=== PATIENT | female | born 1990 | race Caucasian/White ===

== ENCOUNTER 2016-09-25 12:32 | Emergency (ER) | payer MEDICAID ==
[2016-09-25] MEDS ORDERED: HYDROCODONE/ACETAMINOPHEN 5-325 MG TABLET PO ONE (13:16)
--- NOTE | 2016-09-25 13:16 | ER Document Report ---
ED Medical Screen (RME) - General Stated Complaint: CHEST PAIN Time seen by provider: 13:14 Mode of Arrival: Ambulatory Information source: Patient TRAVEL OUTSIDE OF THE [place] IN LAST 30 DAYS: No - HPI Patient complains to provider of: PAIN UNDER RIGHT RIBS Onset: Other - 4 DAYS Onset/Duration: Constant Context: HURTS WITH DEEP BREATH, COUGH, LAYING DOWN Quality of pain: Sharp, Stabbing Severity: Severe Pain Level: 5 Associated Symptoms: Abdominal pain. denies: Nausea, Vomiting Exacerbated by: Coughing, Deep breathing, Food Relieved by: Denies Similar symptoms previously: No Recently seen / treated by doctor: No - Related Data Smoking: Cigarettes Frequency of alcohol use: None Drug Abuse: None Allergies/Adverse Reactions: No Known Allergies Allergy (Verified 09/25/14 23:33) Past Medical History - Immunizations Immunizations up to date: Yes Hx Diphtheria, Pertussis, Tetanus Vaccination: Yes
[2016-09-25 13:41] LABS: ABSOLUTE LYMPHOCYTES (AUTO) 2.4 10^3/uL (0.5-4.7); ABSOLUTE MONOCYTES (AUTO) 0.6 10^3/uL (0.1-1.4); ABSOLUTE NEUT (AUTO) 6.4 10^3/uL (1.7-8.2); BASOPHILS % (AUTO) 0.5 % (0-2); EOSINOPHILS % (AUTO) 0.5 % (0-6); HEMATOCRIT 37.7 % (36.0-47.0); HEMOGLOBIN 12.7 g/dL (12.0-15.5); HGB HCT DIFFERENCE 0.4; MEAN CORPUSCULAR HEMOGLOBIN 27.1 pg (27.0-33.4); MEAN CORPUSCULAR HGB CONC 33.5 g/dL (32.0-36.0); MEAN CORPUSCULAR VOLUME 81 fl (80-97); MONOCYTES % (AUTO) 6.5 % (3-13); RED BLOOD COUNT 4.67 10^6/uL (3.72-5.28); RED CELL DISTRIBUTION WIDTH 14.3 % (11.5-14.0); SEGMENTED NEUTROPHILS % (AUTO) 67.5 % (42-78); WHITE BLOOD COUNT 9.5 10^3/uL (4.0-10.5)
[2016-09-25 13:46] LABS: APPEARANCE,URINE SLIGHTLY-CLOUDY; BILIRUBIN,URINE NEGATIVE (NEGATIVE); GLUCOSE, URINE NEGATIVE (NEGATIVE); KETONES,URINE NEGATIVE (NEGATIVE); LEUKOCYTE ESTERASE,URINE LARGE (NEGATIVE); NITRITE,URINE NEGATIVE (NEGATIVE); PROTEIN,URINE NEGATIVE (NEGATIVE); URINE SPECIFIC GRAVITY 1.012; UROBILINOGEN,URINE NEGATIVE mg/dL (<2.0)
[2016-09-25 14:00] LABS: ALANINE AMINOTRANSFERASE 25 U/L (9-52); ALBUMIN 4.1 g/dL (3.5-5.0); ALKALINE PHOSPHATASE 78 U/L (38-126); ANION GAP 13 (5-19); ASPARTATE AMINO TRANSFERASE 17 U/L (14-36); BILIRUBIN,TOTAL 0.3 mg/dL (0.2-1.3); BLOOD UREA NITROGEN 9 mg/dL (7-20); CALCIUM 9.4 mg/dL (8.4-10.2); CARBON DIOXIDE 25 mmol/L (22-30); CHLORIDE 104 mmol/L (98-107); CREATININE RESULT 0.61 mg/dL (0.52-1.25); GLUCOSE 77 mg/dL (75-110); LIPASE 123.1 U/L (23-300); POTASSIUM 4.4 mmol/L (3.6-5.0); SODIUM 141.6 mmol/L (137-145); TOTAL PROTEIN 7.1 g/dL (6.3-8.2)
--- NOTE | 2016-09-25 15:07 | ER Document Report ---
ED GI/ - General Mode of Arrival: Ambulatory Information source: Patient TRAVEL OUTSIDE OF THE [place] IN LAST 30 DAYS: No - HPI Patient complains to provider of: Abdominal pain - RUQ Onset: Other - x4 days Timing/Duration: Persistent Quality of pain: Sharp Associated symptoms: None Exacerbated by: Deep breathing <ERICA TEJEDA - Last Filed: 09/25/16 15:23> <ADRIANA GUAMAN - Last Filed: 09/25/16 18:07> - General Chief Complaint: Upper Abdominal Pain Stated Complaint: CHEST PAIN Notes: Patient is a 26-year-old female that presents to the emergency department today with complaints of right upper quadrant abdominal pain. Patient states the pain began 4 days ago during her sleep and has remained constant since onset. Patient states the pain radiates to her back and right shoulder. Patient states the pain feels like it is "under the rib cage". Patient states her pain is exacerbated with deep breathing. Patient denies any nausea, vomiting, or diarrhea. (ERICA TEJEDA) - Related Data Allergies/Adverse Reactions: No Known Allergies Allergy (Verified 09/25/16 13:17) Past Medical History - General Information source: Patient - Social History Smoking Status: Current Every Day Smoker Cigarette use (# per day): Yes Chew tobacco use (# tins/day): No Frequency of alcohol use: None Drug Abuse: None Lives with: Family Family History: Reviewed & Not Pertinent Patient has suicidal ideation: No Patient has homicidal ideation: No - Medical History Medical History: Negative Past Surgical History: Reports: Other - cyst on tailbone removed - Immunizations Immunizations up to date: Yes Hx Diphtheria, Pertussis, Tetanus Vaccination: Yes <ERICA TEJEDA - Last Filed: 09/25/16 15:23> Review of Systems - Review of Systems Constitutional: No symptoms reported EENT: No symptoms reported Cardiovascular: No symptoms reported Respiratory: No symptoms reported Gastrointestinal: See HPI, Abdominal pain - RUQ. denies: Diarrhea, Nausea, Vomiting Genitourinary: No symptoms reported Female Genitourinary: No symptoms reported Musculoskeletal: No symptoms reported Skin: No symptoms reported Hematologic/Lymphatic: No symptoms reported Neurological/Psychological: No symptoms reported -: Yes All other systems reviewed and negative <ERICA TEJEDA - Last Filed: 09/25/16 15:23> Physical Exam - General General appearance: Appears well, Alert In distress: None - HEENT Head: Normocephalic, Atraumatic Eyes: Normal Extraocular movements intact: Yes - Respiratory Respiratory status: No respiratory distress Chest status: Tender - right anterior rib tenderness with palpaiton - Cardiovascular Rhythm: Regular Heart sounds: Normal auscultation Murmur: No - Abdominal Distension: No distension Bowel sounds: Normal Tenderness: Tender - mild right upper quadrant tenderness with palpation Organomegaly: No organomegaly - Extremities General upper extremity: Normal inspection, Nontender, Normal ROM General lower extremity: Normal inspection, Nontender, Normal ROM - Neurological Neuro grossly intact: Yes Cognition: Normal Speech: Normal - Psychological Associated symptoms: Normal affect, Normal mood - Skin Skin Temperature: Warm Skin Moisture: Dry Skin Color: Normal <ERICA TEJEDA - Last Filed: 09/25/16 15:23> Course - Laboratory Result Diagrams: 09/25/16 13:20 09/25/16 13:20 <ERICA TEJEDA - Last Filed: 09/25/16 15:23> - Laboratory Result Diagrams: 09/25/16 13:20 09/25/16 13:20 <ADRIANA GUAMAN - Last Filed: 09/25/16 18:07> - Vital Signs Vital signs: Temp Pulse Resp BP Pulse Ox 98.4 F 95 16 103/65 100 09/25/16 13:14 09/25/16 13:14 09/25/16 13:14 09/25/16 13:14 09/25/16 13:14 (ERICA TEJEDA) (ADRIANA GUAMAN) - Laboratory Laboratory results interpreted by me: 09/25/16 09/25/16 13:20 13:25 RDW 14.3 H Ur Leukocyte Esterase LARGE H (ERICA TEJEDA) (ADRIANA GUAMAN) Discharge <ERICA TEJEDA - Last Filed: 09/25/16 15:23> <ADRIANA GUAMAN - Last Filed: 09/25/16 18:07> - Discharge Clinical Impression: Muscular abdominal pain in right upper quadrant Condition: Stable Disposition: HOME, SELF-CARE Additional Instructions: Muscle Strain: You have strained your right upper quadrant abdominal muscles and rib muscles. This often occurs with strenuous exertion, or during an injury that suddenly stretches the muscle. The seriousness of a strain varies. Some strains heal within days, others cause problems for months. X-rays cannot show a muscle strain. X-rays are taken only if symptoms suggest that a fracture could be present. The usual treatment of a muscle strain is rest and moist heat. The muscle can be used again once pain subsides. Severe strains require a special exercise and stretching program to prevent permanent stiffness and disability. Your doctor will advise you if this will be necessary. Call the doctor immediately if pain or swelling becomes severe, or if numbness or discoloration develop. TAKE THE MEDICATION PRESCRIBED. APPLY MOIST HEAT TO THE PAINFUL MUSCLES. REST. AVOID ACTIVITY THAT MAKES IT HURT WORSE. FOLLOW UP WITH YOUR DOCTOR IF NOT IMPROVING. Prescriptions: Cyclobenzaprine HCl [Flexeril 5 mg Tablet] 5 mg PO TID PRN #15 tablet PRN Reason: Hydrocodone/Acetaminophen [Hydrocodon-Acetaminophen 5-325] 1 each PO Q4 PRN #15 tablet PRN Reason: For Pain Scribe Attestation: 09/25/16 18:07 I personally performed the services described in the documentation, reviewed and edited the documentation which was dictated to the scribe in my presence, and it accurately records my words and actions. (ADRIANA GUAMAN) Scribe Documentation - Scribe Written by Taylor:: Taylor Solitario, [id number] 09/25/16 acting as scribe for :: Tequila <ERICA TEJEDA - Last Filed: 09/25/16 15:23>
[2016-09-25 18:16] VITALS: BP 115/73
--- NOTE | 2016-09-26 09:25 | EKG REPORT ---
SEVERITY:- NORMAL ECG - SINUS RHYTHM : Confirmed by: Wilmer Montano 26-Sep-2016 09:24:16
== END 2016-09-25 18:16 | disposition home or self-care (01) ==
LOC: ER 12:32
DX: R10.11 Right upper quadrant pain (principal); F17.210 Nicotine dependence, cigarettes, uncomplicated; R07.9 Chest pain, unspecified
CPT/HCPCS: 36415; 71020; 76705; 80053; 81001; 83690; 84702; 85025; 93005; 93010; 99284

== ENCOUNTER → 2017-04-15 | Outpatient (CLI) | payer MEDICAID ==
--- NOTE | 2017-04-15 17:25 | RADIOLOGY REPORT (SQ) ---
EXAM DESCRIPTION: U/S [id number] TRNABD 1GES W/ODOP COMPLETED DATE/TIME: 04/15/2017 3:45 pm REASON FOR STUDY: ENCOUNTER FOR SUPERVISION OF OTHER NORMAL Z34.82 ENCOUNTER FOR SUPRVSN OF NORMAL , SECOND TRI COMPARISON: None. TECHNIQUE: Transvaginal static and realtime grayscale images acquired of the pelvis. Additional paul cted spectral and color Doppler images recorded. All images stored on PACs. bHCG: Not applicable. LIMITATIONS: None. FINDINGS: FETUS: Living intrauterine . EGA: 12 weeks 0 days XANDER: 10/28/2017 FHR: 169 beats per minute. SUBCHORIONIC BLEED: No SIZE OF BLEED: Not applicable. UTERUS: No masses. No anomalies. CERVICAL LENGTH: 2.9 cm. Closed. RIGHT ADNEXA: Normal ovary, measuring 22 x 14 x 15 mm, with normal vascular flow. No adnexal free fluid. No adnexal masses. LEFT ADNEXA: Normal ovary, measuring 29 x 15 x 16 mm, with normal vascular flow. No adnexal free fluid. No adnexal masses. FREE FLUID: None. OTHER: movement was observed. IMPRESSION: There is a live intrauterine gestation of 12 weeks 0 days with an estimated date of deli very of 10/28/2017. Trimester of : First - 0 to 13 weeks. TECHNICAL DOCUMENTATION: JOB ID: [id number] [email or web address] All Rights Reserved
== END ==
LOC: RAD 14:55
PROVIDERS: ATTEND Nurse Practitioner Women's Health
DX: Z34.81 Encounter for supervision of other normal pregnancy, first trimester (principal)
CPT/HCPCS: 76801

== ENCOUNTER 2017-10-26 03:04 | Outpatient (CLI) | payer MEDICAID ==
[2017-10-26 03:49] LABS: APPEARANCE,URINE CLEAR; BILIRUBIN,URINE NEGATIVE (NEGATIVE); COLOR,URINE YELLOW; GLUCOSE, URINE NEGATIVE (NEGATIVE); KETONES,URINE NEGATIVE (NEGATIVE); LEUKOCYTE ESTERASE,URINE NEGATIVE (NEGATIVE); NITRITE,URINE NEGATIVE (NEGATIVE); PROTEIN,URINE NEGATIVE (NEGATIVE); URINE SPECIFIC GRAVITY 1.024
[2017-10-26 04:11] LABS: URINE AMPHETAMINES SCREEN NEGATIVE; URINE BARBITURATES SCREEN NEGATIVE; URINE BENZODIAZEPINES SCREEN NEGATIVE; URINE COCAINE SCREEN NEGATIVE; URINE MARIJUANA (THC) SCREEN NEGATIVE; URINE METHADONE SCREEN NEGATIVE; URINE PHENCYCLIDINE SCREEN NEGATIVE
[2017-10-26] MEDS ORDERED: HYDROXYZINE PAMOATE 50 MG CAPSULE PO ONE (04:31)
[2017-10-26] MEDS ORDERED: HYDROXYZINE PAMOATE 50 MG CAPSULE ONE (04:36)
--- NOTE | 2017-10-26 04:43 | Non Stress Test Report ---
Non Stress Test Datetime Report Generated by CPN: 10/26/2017 04:43 DEMOGRAPHIC Test Number: 1 EGA NST: 39.5 INDICATION Indication for Study: Ordered by Provider VITAL SIGNS Temperature - NST: 97.7 Pulse - NST: 85 RESP - NST: 16 NBPSYS NST: 119 NBPDIA NST: 64 MONITORING Time on Monitor: 10/26/2017 03:21 Time off Monitor: 10/26/2017 03:49 NST Duration: 28 NST INTERVENTIONS NST Interventions: PO Hydration Physician Notified NST: Dr. Salvador BABY A: [id number] BABY A Movement : Present Contraction Frequency : 1.5-5 FHR Baseline : 130 Accelerations : 15X15 Decelerations : None Variability : Moderate 6-25bpm NST Review: Meets Criteria for Reactive NST NST Review and Verified By : Samuel Turcios RN NST Results: Reactive NST REPORT Report Trigger: Send Report
--- NOTE | 2017-10-28 03:58 | Warning Signs in Babies ---
VOD Warning Signs Datetime Report Generated by [facility]: 10/28/2017 03:58 VOD#608 -Warning Signs in Babies: Viewed with Parent(s)/Family (10/26/2017 03:05:Tomeka Alvarez RN)
== END 2017-10-26 03:46 | disposition home or self-care (01) ==
LOC: LC 03:04
PROVIDERS: ATTEND Obstetrics & Gynecology
PROC: 4A1HXCZ Monitoring of Products of Conception, Cardiac Rate, External Approach (ICD-10-PCS; principal; 2017-10-26)
DX: O47.1 False labor at or after 37 completed weeks of gestation (principal); Z3A.39 39 weeks gestation of pregnancy
CPT/HCPCS: 59025; 81005; 80307; J3490

== ENCOUNTER 2017-10-27 14:44 | Inpatient (IN) | payer MEDICAID ==
[2017-10-27] MEDS ORDERED: DINOPROSTONE 10 MG VAGINAL INSERT.SR PV PRN (20:03)
[2017-10-27] MEDS ORDERED: RINGERS SOLUTION,LACTATED 1,000 ML IV PRN (20:03)
[2017-10-27] MEDS ORDERED: RINGERS SOLUTION,LACTATED 300 ML IV ONE (20:03)
[2017-10-27] MEDS ORDERED: DINOPROSTONE 10 MG VAGINAL INSERT.SR ONE (20:09)
[2017-10-27 20:15] LABS: APPEARANCE,URINE SLIGHTLY-CLOUDY; BILIRUBIN,URINE NEGATIVE (NEGATIVE); COLOR,URINE YELLOW; GLUCOSE, URINE NEGATIVE (NEGATIVE); KETONES,URINE NEGATIVE (NEGATIVE); LEUKOCYTE ESTERASE,URINE SMALL (NEGATIVE); NITRITE,URINE NEGATIVE (NEGATIVE); PROTEIN,URINE NEGATIVE (NEGATIVE); URINE SPECIFIC GRAVITY 1.033
[2017-10-27 20:31] LABS: URINE AMPHETAMINES SCREEN NEGATIVE; URINE BARBITURATES SCREEN NEGATIVE; URINE BENZODIAZEPINES SCREEN NEGATIVE; URINE COCAINE SCREEN NEGATIVE; URINE MARIJUANA (THC) SCREEN NEGATIVE; URINE METHADONE SCREEN NEGATIVE; URINE PHENCYCLIDINE SCREEN NEGATIVE
[2017-10-27 20:36] LABS: ABSOLUTE LYMPHOCYTES (AUTO) 2.3 10^3/uL (0.5-4.7); ABSOLUTE MONOCYTES (AUTO) 0.6 10^3/uL (0.1-1.4); ABSOLUTE NEUT (AUTO) 7.6 10^3/uL (1.7-8.2); BASOPHILS % (AUTO) 0.3 % (0-2); EOSINOPHILS % (AUTO) 0.5 % (0-6); HEMATOCRIT 32.8 % (36.0-47.0); HEMOGLOBIN 10.8 g/dL (12.0-15.5); LYMPHOCYTES % (AUTO) 21.7 % (13-45); MEAN CORPUSCULAR HEMOGLOBIN 23.8 pg (27.0-33.4); MEAN CORPUSCULAR HGB CONC 32.9 g/dL (32.0-36.0); MEAN CORPUSCULAR VOLUME 73 fl (80-97); MONOCYTES % (AUTO) 5.2 % (3-13); PLATELET COUNT 179 10^3/uL (150-450); RED BLOOD COUNT 4.53 10^6/uL (3.72-5.28); RED CELL DISTRIBUTION WIDTH 16.9 % (11.5-14.0); SEGMENTED NEUTROPHILS % (AUTO) 72.3 % (42-78); TOTAL CELLS COUNTED % (AUTO) 100 %; WHITE BLOOD COUNT 10.6 10^3/uL (4.0-10.5)
[2017-10-28] MEDS ORDERED: NALBUPHINE HCL INJ 10 MG/1 ML AMPULE INJ ONE (01:15)
[2017-10-28] MEDS ORDERED: PROMETHAZINE HCL INJ 25 MG/1 ML VIAL IV ONE (01:16)
[2017-10-28] MEDS ORDERED: NALBUPHINE HCL INJ 10 MG/1 ML AMPULE ONE (01:18)
[2017-10-28] MEDS ORDERED: PROMETHAZINE HCL INJ 25 MG/1 ML VIAL ONE (01:18)
[2017-10-28] MEDS ORDERED: FENTANYL CITRATE INJ/PF 100 MCG/2 ML AMPUL ONE (02:43)
[2017-10-28] MEDS ORDERED: EPHEDRINE SULFATE INJ 50 MG/1 ML AMPULE ONE (02:43)
[2017-10-28] MEDS ORDERED: MISOPROSTOL 0.2 MG TABLET ONE (02:43)
[2017-10-28] MEDS ORDERED: LIDOCAINE 1% INJ-PF (10 MG/ML) 30 ML SDV ONE (02:44)
[2017-10-28] MEDS ORDERED: FENTANYL/BUPIVACAINE/NS/PF 0 MCG/0 ML RTUINJ EPI ONE (02:44)
[2017-10-28] MEDS ORDERED: PHENYLEPHRINE HCL INJ/PF 10 MG/1 ML SDV ONE (02:44)
[2017-10-28] MEDS ORDERED: BUPIVACAINE HCL 0.25 % INJ/PF (2.5 MG/1 ML) 30 ML VIAL ONE (02:44)
[2017-10-28] MEDS ORDERED: OXYTOCIN/NORMAL SALINE 20 UNIT/1,000 ML RTUINJ ONE (02:44)
[2017-10-28] MEDS ORDERED: DIPHENHYDRAMINE HCL 25 MG CAPSULE PO PRN (03:25)
[2017-10-28] MEDS ORDERED: NA PHOS,M-B/NA PHOS,DI-BA (ADULT) 133 ML ENEMA PR PRN (03:25)
[2017-10-28] MEDS ORDERED: PROMETHAZINE HCL 25 MG TABLET PO PRN (03:25)
[2017-10-28] MEDS ORDERED: ZOLPIDEM TARTRATE 5 MG TABLET PO PRN (03:25)
[2017-10-28] MEDS ORDERED: BENZOCAINE/MENTHOL AEROSOL SPRAY 56 ML TOP PRN (03:25)
[2017-10-28] MEDS ORDERED: DIPH/PERTUSS(ACELL)/TETANUS VAC/PF 0.5 ML SYR (>=10YO) IM PRN (03:25)
[2017-10-28] MEDS ORDERED: OXYTOCIN/NORMAL SALINE 20 UNIT/1,000 ML RTUINJ IV PRN (03:25)
[2017-10-28] MEDS ORDERED: GLYCERIN/WITCH HAZEL LEAF 1 EACH MED..PAD TP PRN (03:25)
[2017-10-28] MEDS ORDERED: PSEUDOEPHEDRINE HCL 30 MG TABLET PO PRN (03:25)
[2017-10-28] MEDS ORDERED: DIBUCAINE 1% OINTMENT 28 GM TP PRN (03:25)
[2017-10-28] MEDS ORDERED: MEASLES,MUMPS&RUBELLA VACC/PF 0.5 ML VIAL SUBCUT PRN (03:25)
[2017-10-28] MEDS ORDERED: PROMETHAZINE HCL INJ 25 MG/1 ML VIAL IV PRN (03:25)
[2017-10-28] MEDS ORDERED: ACETAMINOPHEN WITH CODEINE #3 TABLET PO PRN ×2 (03:25)
[2017-10-28] MEDS ORDERED: PROMETHAZINE HCL 25 MG SUPP.RECT PR PRN (03:25)
[2017-10-28] MEDS ORDERED: MAGNESIUM HYDROXIDE SUSP 30 ML UDCUP PO PRN (03:25)
[2017-10-28] MEDS ORDERED: ACETAMINOPHEN 650 MG SUPP.RECT PR PRN (03:25)
[2017-10-28] MEDS ORDERED: ACETAMINOPHEN WITH CODEINE #3 TABLET ONE (04:04)
--- NOTE | 2017-10-28 05:53 | Admission Physical ---
Datetime Report Generated by CPN: 10/28/2017 05:52 CURRENT ADMISSION Chief Complaint: Scheduled Induction of Labor Indication for Induction: Maternal Diabetes Indication for Induction: Term, Intrauterine ; Induction of Labor Admit Plan: Admit to Unit; Initiate Labor Induction Protocol ALLERGIES Medication Allergies: No Medication Allergies: No Known Allergies (10/26/2017) Medication Allergies: No Known Allergies (09/25/2016) Latex: No Latex Allergies Food Allergies: denies Environmental Allergies: denies OBSTETRICAL HISTORY EDC: 10/28/2017 00:00 : 2 Para: 1 Term: 1 : 0 SAB: 0 IAB: 0 Ectopic: 0 Livin Cesareans: 0 VBACs: 0 Multiple Births: 0 Gestational Diabetes: Yes Rh Sensitization: No Incompetent Cervix: No VÍCTOR: No Infertility: No ART Treatment: No Uterine Anomaly: No IUGR: No Hx Previous C/S: No Macrosomia: No Hx Loss/Stillborn: No PIH: No Hx : No Placenta Previa/Abruption: No Depression/PP Depression: No PTL/PROM: No Post Hemorrhage: No Current Procedures: Ultrasound; NST Obstetrical History Comments: g1- 2015, , female, 7lb g2-current , GDM diet controlled SEE RECORDS Alcohol: No Marijuana : No Cocaine: No Other Illicit Drugs: No Cigarettes: Current Some Day Smoker. [id number] MEDICAL HISTORY Diabetes: Yes Diabetes Type: Gestational Diabetes Blood Transfusion: No Pulmonary Disease (Asthma, TB): No Breast Disease: No Hypertension: No Clinical Education Assistant Surgery: No Heart Disease: No Hosp/Surgery: Yes Autoimmune Disorder: No Anesthetic Complications: No Kidney Disease: No Abnormal Pap Smear: No Neuro/Epilepsy: No Psychiatric Disorders: No Other Medical Diseases: No Hepatitis/Liver Disease: No Significant Family History: No Varicosities/Phlebitis: No Trauma/Violence : No Thyroid Dysfunction: No Medical History Comments: childbirth x 1, currently being treated for tooth infection, occasional smoker, anemia, wisdom teeth removed INFECTIOUS HISTORY Gonorrhea: No Genital Herpes: No Chlamydia: Yes Tuberculosis: No Syphilis: No Hepatitis: No HIV/AIDS Exposure: No Rash or Viral Illness: No HPV: No Infectious History Comments: chlamydia 2017 PHYSICAL EXAM General: Normal HEENT: Normal Neurologic: Normal Thyroid: Normal Heart: Normal Lungs: Normal Breast: Normal Back: Normal Abdomen: Normal Genitourinary Exam: Normal Extremities: Normal DTRs: Normal Pelvic Type: Adequate Vital Signs: Reviewed; Within Normal Limits VAGINAL EXAM Dilatation: 2 Effacement: 50 Station: -2 MEMBRANES Pooling: Negative Membranes: Intact FETUS A EGA: 40.0 Monitoring: External US FHR- Baseline: 140 Variability: Moderate 6-25bpm Accelerations: 15X15 Decelerations: None FHR Category: Category I Estimated Weight (gm): 3600 Presentation: Vertex PLANS FOR LABOR AND DELIVERY Labor and Delivery: None Pain Management: Epidural Feeding Preference: Both Benefit of Breast Feed Discussed: Yes Circumcision: N/A INFORMED CONSENT Signature: with User ID: [email or web address]
[2017-10-28] MEDS: IBUPROFEN 800 MG TABLET PO SCH ×3 (08:12→21:23)
[2017-10-28] MEDS: SENNOSIDES/DOCUSATE 8.6-50 MG 1 EACH TABLET PO SCH (09:23)
[2017-10-28] MEDS: DOCUSATE SODIUM 100 MG CAPSULE PO SCH ×2 (09:23→18:46)
[2017-10-28] MEDS: PRENATAL VITAMIN W DHA CAPSULE PO SCH (09:24)
[2017-10-28] MEDS: FAMOTIDINE 20 MG TABLET PO SCH ×2 (09:24→21:24)
[2017-10-28] MEDS: FERROUS SULFATE 325 MG TABLET PO SCH ×2 (09:24→18:46)
--- NOTE | 2017-10-28 10:02 | PDOC PROGRESS REPORT ---
Subjective-OB Progress Note for:: 10/28/17 Subjective: 27yo G2 now P2 s/p ppd1 (several hours pp). Ambulating and voiding without difficulty Physical Exam (OB) Vital Signs: Temp Pulse Resp BP Pulse Ox 98.6 F 69 16 116/65 98 10/28/17 07:56 10/28/17 07:56 10/28/17 07:56 10/28/17 07:56 10/28/17 07:56 Intake & Output 10/27/17 10/28/17 10/29/17 06:59 06:59 06:59 Weight 79.9 kg - General General Appearance: Appears well In distress: None - PIH/Pre-Eclampsia DTR's: 2 + Clonus: Negative Headache: Absent Epigastric Pain: No Visual Changes: No - Episiotomy/Laceration Site Condition: N/A - Lochia Lochia Amount: Small 10-25 ml Lochia Color: Rubra/Red - Abdomen Description: Soft, Round Hernia Present: No Fundal Description: Firm, Midline Fundal Height: u/u - u/2 - Respiratory Respiratory Status: No respiratory distress - Extremities Upper extremity: Normal inspection Lower extremities: Normal inspection - Neurological Cognition: Normal Orientation: AAOx4 - Psychological Associated symptoms: Normal affect, Normal mood Objective-Diagnostic Laboratory: 10/27/17 20:20 10/27/17 20:20 10/27/17 10/27/17 10/27/17 19:59 20:20 20:20 WBC 10.6 H RBC 4.53 Hgb 10.8 L Hct 32.8 L MCV 73 L MCH 23.8 L MCHC 32.9 RDW 16.9 H Plt Count 179 Seg Neutrophils % 72.3 Lymphocytes % 21.7 Monocytes % 5.2 Eosinophils % 0.5 Basophils % 0.3 Absolute Neutrophils 7.6 Absolute Lymphocytes 2.3 Absolute Monocytes 0.6 Absolute Eosinophils 0.0 Absolute Basophils 0.0 Glucose 95 Urine Color YELLOW Urine Appearance SLIGHTLY-CLOUDY Urine pH 5.0 Ur Specific [place] 1.033 Urine Protein NEGATIVE Urine Glucose (UA) NEGATIVE Urine Ketones NEGATIVE Urine Blood NEGATIVE Urine Nitrite NEGATIVE Ur Leukocyte Esterase SMALL H Blood Type Antibody Screen 10/27/17 20:20 WBC RBC Hgb Hct MCV MCH MCHC RDW Plt Count Seg Neutrophils % Lymphocytes % Monocytes % Eosinophils % Basophils % Absolute Neutrophils Absolute Lymphocytes Absolute Monocytes Absolute Eosinophils Absolute Basophils Glucose Urine Color Urine Appearance Urine pH Ur Specific [place] Urine Protein Urine Glucose (UA) Urine Ketones Urine Blood Urine Nitrite Ur Leukocyte Esterase Blood Type O POSITIVE Antibody Screen NEGATIVE Assessment and Plan(PN) - Assessment and Plan (1) Anemia complicating , third trimester Is this a current diagnosis for this admission?: Yes Plan: Increase dietary iron and FeSO4 BID. (2) Delivery normal Is this a current diagnosis for this admission?: Yes Plan: Routine pp care (3) Positive GBS test Is this a current diagnosis for this admission?: Yes Plan: delivered (4) Gestational diabetes mellitus (GDM) affecting Is this a current diagnosis for this admission?: Yes Plan: pp follow up - Time Spent with Patient Time with patient: Less than 15 minutes Smoking Education Provided: Over 3 minutes Medications reviewed and adjusted accordingly: Yes - Disposition Anticipated Discharge: Home Within: within 48 hours
[2017-10-29] MEDS: IBUPROFEN 800 MG TABLET PO SCH ×2 (05:47→13:23)
[2017-10-29 08:20] LABS: HEMATOCRIT 29.5 % (36.0-47.0); HEMOGLOBIN 9.8 g/dL (12.0-15.5); MEAN CORPUSCULAR HEMOGLOBIN 24.6 pg (27.0-33.4); MEAN CORPUSCULAR HGB CONC 33.3 g/dL (32.0-36.0); MEAN CORPUSCULAR VOLUME 74 fl (80-97); PLATELET COUNT 169 10^3/uL (150-450); RED CELL DISTRIBUTION WIDTH 17.2 % (11.5-14.0); WHITE BLOOD COUNT 11.6 10^3/uL (4.0-10.5)
[2017-10-29] MEDS: FERROUS SULFATE 325 MG TABLET PO SCH ×2 (09:50→17:18)
[2017-10-29] MEDS: PRENATAL VITAMIN W DHA CAPSULE PO SCH (09:51)
[2017-10-29] MEDS: FAMOTIDINE 20 MG TABLET PO SCH (09:51)
[2017-10-29] MEDS: SENNOSIDES/DOCUSATE 8.6-50 MG 1 EACH TABLET PO SCH (09:51)
[2017-10-29] MEDS: DOCUSATE SODIUM 100 MG CAPSULE PO SCH ×2 (09:51→17:18)
--- NOTE | 2017-10-29 11:12 | PDOC DISCHARGE SUMMARY ---
Final Diagnosis Discharge Date: 10/29/17 Discharge Data - Discharge Medication Prescriptions: Ibuprofen [Motrin 800 mg Tablet] 800 mg PO Q8 #60 tablet Home Medications: Pnv No.103/Folic/Om3s/Fish Oil [ Gummies] 1 tab PO DAILY 07/31/15 Ferrous Sulfate [Feosol 325 mg Tablet] 325 mg PO BID #60 tablet 08/02/15 Acetaminophen with Codeine [Tylenol #3 Tablet] 1 tab PO Q4 PRN 10/26/17 Docusate Sodium [Colace 100 mg Capsule] 100 mg PO BID capsule 10/29/17 Ibuprofen [Motrin 800 mg Tablet] 800 mg PO Q8 #60 tablet 10/29/17 Procedures: NST Intrapartum Procedure(s): Spontaneous Vaginal Delivery - Diagnosis Test Laboratory: Temp Pulse Resp BP Pulse Ox 98.1 F 88 16 113/70 100 10/29/17 08:25 10/29/17 08:25 10/29/17 08:25 10/29/17 08:25 10/29/17 08:25 10/27/17 10/27/17 10/29/17 19:59 20:20 07:49 RBC 4.53 4.00 Hgb 10.8 L 9.8 L Hct 32.8 L 29.5 L Urine Opiates Screen NEGATIVE - Discharge information/Instructions Discharge Activity: Activity As Tolerated, Balance Activity w/Rest, Pelvic Rest Discharge Diet: Regular Disposition: HOME, SELF-CARE Follow up with: [facility] in: 4, Weeks
[2017-10-29 18:29] VITALS: BP 109/59
--- NOTE | 2017-11-07 15:32 | Delivery Summary ---
Del Sum A-C Datetime Report Generated by CPN: 11/07/2017 15:32 DELIVERY PERSONNEL DELIVERY PERSONNEL: [id number] Delivery Doctor:: Nimo Franco MD Labor and Delivery Nurse:: Tomeka Church RNhand ii thermal cutter Nurse:: Jennyfer Douglas RN Lens Cleaner:: Mi Azevedo RN Nursery Nurse:: Yamilka Salmon RN Nursery Nurse:: Danae Haskins RN Collet Making Machine Operator/CERTIFIED NOVELL ADMINISTRATOR: Jewels Beth, ST MATERNAL INFORMATION Delivery Anesthesia: None Delivery Anesthesia: None Medications After Delivery: Pitocin Bolus-Please Comment; Pitocin Drip 20 Units/1000ml NSS Meds After Delivery Comment: ns with pitocin 20 units/liter ivf bolus Estimated Blood Loss (ml): 300 Maternal Complications: Precipitous Labor (<3hrs); Other Other Maternal Complications: [id number] LABOR SUMMARY EDC: 10/28/2017 00:00 No. Babies in Womb: 1 Attempted: No Labor Anesthesia: None LABOR INFORMATION Reason for Induction: Maternal Diabetes Onset of Labor: 10/28/2017 01:07 Complete Dilatation: 10/28/2017 03:02 Cervical Ripening Agents: Cervidil Oxytocin: N/A Group B Beta Strep: negative Steroids Given: None Reason Steroids Not Administered: Not Applicable MEMBRANES Membranes Rupture Method: Spontaneous Membranes Rupture Method: Spontaneous Rupture of Membranes: 10/28/2017 02:30 Length of Rupture (hr): 0.65 Amniotic Fluid Color: Clear Amniotic Fluid Color: Clear Amniotic Fluid Amount: Moderate Amniotic Fluid Amount: Moderate Amniotic Fluid Odor: Normal Amniotic Fluid Odor: Normal STAGES OF LABOR Stage 1 hr: 1 Stage 1 min: 55 Stage 2 hr: 0 Stage 2 min: 7 Stage 3 hr: 0 Stage 3 min: 3 Total Time in Labor hr: 2 Total Time in Labor min: 5 VAGINAL DELIVERY Episiotomy: None Laceration #1: None Laceration Extension #1: N/A Laceration Repair: Not Applicable Sponge Count Correct: N/A Sharps Count Correct: N/A CSECTION DELIVERY Primary Indication: N/A Secondary Indication: N/A CSection Incidence: N/A Labor: N/A Elective: N/A CSection Incision: N/A BABY A INFORMATION Infant Delivery Date/Time: 10/28/2017 03:09 Method of Delivery: Vaginal Born in Route : No : N/A Forceps: N/A Vacuum Extraction: Failed Shoulder Dystocia : No ASSISTED DELIVERY BABY A Indication for Assisted Delivery: bradycardia Catheter Prior to Procedure: No Station Vacuum/Forcep Apply: +2 Position Vacuum/Forcep Apply: op Vacuum Number of Pulls: 2 Vacuum Number of PopOffs: 2 Reduce Pressure btwn Ctx: Yes Total Time Vacuum Applied: 30 sec PRESENTATION/POSITION BABY A Presentation: Cephalic Presentation: Cephalic Cephalic Presentation: Vertex Vertex Position: direct op Breech Presentation: N/A PLACENTA INFORMATION BABY A Placenta Delivery Time : 10/28/2017 03:12 Placenta Method of Delivery: Spontaneous Placenta Status: Delivered SCORES BABY A Heart Rate 1 min: >100 bpm Resp Effort 1 min: Good Cry Reflex Irritability 1 min: Cough or Sneeze or Pulls Away Muscle Tone 1 min: Active Motion Color 1 min: Blue/Pale Resuscitation Effort 1 min: Tactile Stimulation SCORE 1 MIN: 8 Heart Rate 5 min: >100 bpm Resp Effort 5 min: Good Cry Reflex Irritability 5 min: Cough or Sneeze or Pulls Away Muscle Tone 5 min: Active Motion Color 5 min: Body [place], Extremities Blue Resuscitation Effort 5 min: Tactile Stimulation SCORE 5 MIN: 9 INFANT INFORMATION BABY A Gestational Age at Delivery: 40.0 Gestational Status: Full Term- 39- 40.6 Weeks Outcome : Liveborn Condition : Stable Infant Sex: Female IDENTIFICATION BABY A Verification Date/Time: 10/28/2017 03:46 ID Band Number: [id number] Mother's Name Verified: Yes Infant RN Verifying : rn emerson Additional Verifying Personnel: avinash church WEIGHT/LENGTH BABY A Birthweight (gm): 3160 Weight (lb): 6 Infant Weight (oz): 15 Infant Length (in): 20.25 Infant Length (cm): 51.44 CORD INFORMATION BABY A No. Cord Vessels: 3 Nuchal Cord : Around Neck x1, Loose Cord Blood Taken: Yes-For Eval (Mom's Blood Type - or O+) Infant Suction: Mouth ASSESSMENT BABY A Complications: Multiple Variable Decels Physical Findings at Delivery: Within Normal Limits Infant Respirations: Appears Normal Skin to Skin: Yes [place] Presser/ALS Called : No Care By: avinash salmon Transferred To: Remains with Mother BABY B INFORMATION : N/A SIGNATURES Signature: with User ID: Juan Luis
== END 2017-10-29 18:40 | disposition home or self-care (01) | DRG 775 ==
LOC: LR 19:39 → 2S 10-28 05:35
PROVIDERS: ADMIT Obstetrics & Gynecology; ATTEND Obstetrics & Gynecology
PROC: 4A1HXCZ Monitoring of Products of Conception, Cardiac Rate, External Approach (ICD-10-PCS; 2017-10-27)
PROC: 10D07Z6 Extraction of Products of Conception, Vacuum, Via Natural or Artificial Opening (ICD-10-PCS; principal; 2017-10-28)
PROC: 3E0234Z Introduction of Serum, Toxoid and Vaccine into Muscle, Percutaneous Approach (ICD-10-PCS; 2017-10-29)
DX: O76 Abnormality in fetal heart rate and rhythm complicating labor and delivery (principal); O24.420 Gestational diabetes mellitus in childbirth, diet controlled; O99.334 Smoking (tobacco) complicating childbirth; O69.81X0 Labor and delivery complicated by cord around neck, without compression, not applicable or unspecified; F17.210 Nicotine dependence, cigarettes, uncomplicated; O99.02 Anemia complicating childbirth; O62.3 Precipitate labor; O99.824 Streptococcus B carrier state complicating childbirth; Z23 Encounter for immunization; Z37.0 Single live birth
CPT/HCPCS: 36415; 80307; 81005; 82947; 85025; 85027; 86592; 86850; 86900; 86901; 90715; J2300; J2370; J2550; J2590; J3010; J3490

== ENCOUNTER 2018-11-23 13:06 | Emergency (ER) | payer MEDICAID ==
[2018-11-23 13:16] VITALS: BP 127/73
[2018-11-23] MEDS ORDERED: TETRACAINE HCL 0.5% OPH SOLN 4 ML ONE (13:45)
[2018-11-23] MEDS ORDERED: TETRACAINE HCL 0.5% OPH SOLN 4 ML OD ONE (13:56)
--- NOTE | 2018-11-23 13:56 | ER Document Report ---
ED Eye Complaint - General Chief Complaint: Eye Pain Stated Complaint: EYE INJURY Time Seen by Provider: 11/23/18 13:50 Primary Care Provider: MAXIM FELDMAN MD [Primary Care Provider] - Follow up as needed Mode of Arrival: Ambulatory Information source: Patient TRAVEL OUTSIDE OF THE [place] IN LAST 30 DAYS: No - HPI Patient complains to provider of: R eye pain Onset: Other - pt scratched bydaughter in R eye 3 days ago. Still c/o pain R eye - Related Data Allergies/Adverse Reactions: No Known Allergies Allergy (Verified 10/27/17 19:52) Past Medical History - Social History Smoking Status: Current Every Day Smoker Chew tobacco use (# tins/day): No Frequency of alcohol use: None Drug Abuse: None Family History: Reviewed & Not Pertinent Patient has suicidal ideation: No Patient has homicidal ideation: No Renal/ Medical History: Denies: Hx Peritoneal Dialysis Past Surgical History: Reports: Other - cyst on tailbone removed - Immunizations Immunizations up to date: Yes Hx Diphtheria, Pertussis, Tetanus Vaccination: Yes Review of Systems - Review of Systems Constitutional: No symptoms reported EENT: See HPI, Eye pain Cardiovascular: No symptoms reported Respiratory: No symptoms reported Gastrointestinal: No symptoms reported -: Yes All other systems reviewed and negative Physical Exam - Vital signs Vitals: Temp Pulse Resp BP Pulse Ox 98.4 F 115 H 14 127/73 H 98 11/23/18 13:14 11/23/18 13:14 11/23/18 13:14 11/23/18 13:14 11/23/18 13:14 - General General appearance: Appears well In distress: Mild - HEENT Head: Normocephalic Cornea: Flourescein stain uptake - there is central corneal abrasion on R eye after dye placed on Wood's lamp. L eye nl. There is no FB in either eye Course - Vital Signs Vital signs: Temp Pulse Resp BP Pulse Ox 98.4 F 115 H 14 127/73 H 98 11/23/18 13:14 11/23/18 13:14 11/23/18 13:14 11/23/18 13:14 11/23/18 13:14 Discharge - Discharge Clinical Impression: Corneal abrasion Qualifiers: Encounter type: initial encounter Laterality: right Qualified Code(s): S05.01XA - Injury of conjunctiva and corneal abrasion without foreign body, right eye, initial encounter Condition: Stable Disposition: HOME, SELF-CARE Instructions: Corneal Abrasion ([facility]) Additional Instructions: rest, take meds as prescribed, return if worse Prescriptions: Gentamicin Sulfate [Genoptic] 5 ml OP Q6 #1 drops Referrals: MAXIM FELDMAN MD [Primary Care Provider] - Follow up as needed GLEN PICHARDO MD [ACTIVE STAFF] - Follow up as needed
== END 2018-11-23 14:02 | disposition home or self-care (01) ==
LOC: ER 13:06
DX: S05.01XA Injury of conjunctiva and corneal abrasion without foreign body, right eye, initial encounter (principal); W50.4XXA Accidental scratch by another person, initial encounter; F17.200 Nicotine dependence, unspecified, uncomplicated
CPT/HCPCS: 99283

== ENCOUNTER 2018-12-07 11:53 | Inpatient (IN) | payer MEDICAID ==
[2018-12-07] MEDS ORDERED: MISOPROSTOL 0.2 MG TABLET ONE (12:08)
[2018-12-07] MEDS ORDERED: OXYTOCIN/NORMAL SALINE 20 UNIT/1,000 ML RTUINJ ONE (12:08)
[2018-12-07] MEDS ORDERED: LIDOCAINE 1% INJ-PF (10 MG/ML) 30 ML SDV ONE (12:08)
[2018-12-07] MEDS ORDERED: RINGERS SOLUTION,LACTATED 1,000 ML IV ONE (12:20)
[2018-12-07 13:14] LABS: HEMATOCRIT 28.8 % (36.0-47.0); HEMOGLOBIN 9.5 g/dL (12.0-15.5); MEAN CORPUSCULAR HEMOGLOBIN 21.7 pg (27.0-33.4); MEAN CORPUSCULAR HGB CONC 32.9 g/dL (32.0-36.0); MEAN CORPUSCULAR VOLUME 66 fl (80-97); PLATELET COUNT 139 10^3/uL (150-450); RED BLOOD COUNT 4.36 10^6/uL (3.72-5.28); RED CELL DISTRIBUTION WIDTH 17.8 % (11.5-14.0); WHITE BLOOD COUNT 9.4 10^3/uL (4.0-10.5)
[2018-12-07 13:17] LABS: APPEARANCE,URINE CLOUDY; BILIRUBIN,URINE NEGATIVE (NEGATIVE); COLOR,URINE AMBER; GLUCOSE, URINE NEGATIVE (NEGATIVE); KETONES,URINE 80 mg/dL (NEGATIVE); LEUKOCYTE ESTERASE,URINE LARGE (NEGATIVE); NITRITE,URINE NEGATIVE (NEGATIVE); PROTEIN,URINE 30 mg/dL (NEGATIVE); URINE SPECIFIC GRAVITY 1.023; UROBILINOGEN,URINE NEGATIVE mg/dL (<2.0)
[2018-12-07] MEDS ORDERED: FENTANYL CITRATE INJ/PF 100 MCG/2 ML AMPUL ONE (13:19)
[2018-12-07] MEDS ORDERED: BUPIVACAINE HCL 0.25 % INJ/PF (2.5 MG/1 ML) 30 ML VIAL ONE (13:19)
[2018-12-07] MEDS ORDERED: FENTANYL/BUPIVACAINE/NS/PF 300 MCG/150 ML RTUINJ EPI ONE (13:19)
[2018-12-07] MEDS ORDERED: EPHEDRINE SULFATE INJ 50 MG/1 ML AMPULE ONE (13:19)
--- NOTE | 2018-12-07 13:33 | Admission Physical ---
Datetime Report Generated by CPN: 12/07/2018 13:33 CURRENT ADMISSION Chief Complaint: Uterine Contractions Indication for Induction: Not Applicable Admit Impression : Term, Intrauterine ; Active Labor Admit Plan: Admit to Unit; Initiate Labor Protocol ALLERGIES Medication Allergies: No Medication Allergies: No Known Allergies (10/27/2017) Latex: No Latex Allergies OBSTETRICAL HISTORY EDC: 12/06/2018 00:00 : 3 Para: 2 Term: 2 : 0 SAB: 0 IAB: 0 Ectopic: 0 Livin Cesareans: 0 VBACs: 0 Multiple Births: 0 Gestational Diabetes: Yes Rh Sensitization: No Incompetent Cervix: No VÍCTOR: No Infertility: No ART Treatment: No Uterine Anomaly: No IUGR: No Hx Previous C/S: No Macrosomia: No Hx Loss/Stillborn: No PIH: No Hx : No Placenta Previa/Abruption: No Depression/PP Depression: No PTL/PROM: No Post Hemorrhage: No Current Procedures: Ultrasound; NST Obstetrical History Comments: G-1 Female 2015 no complications, term G-2 2018 female GDM no meds IOL 40 weeks , precipitous labor G-3 current late to care, close interval pregnancies SEE RECORDS Alcohol: No Marijuana : No Cocaine: No Other Illicit Drugs: No Cigarettes: Current Everyday Smoker. 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 Surgery: No Heart Disease: No Hosp/Surgery: No Autoimmune Disorder: No Anesthetic Complications: No Kidney Disease: No Abnormal Pap Smear: No Neuro/Epilepsy: No Psychiatric Disorders: No Other Medical Diseases: No Hepatitis/Liver Disease: No Significant Family History: No Varicosities/Phlebitis: No Trauma/Violence : No Thyroid Dysfunction: No INFECTIOUS HISTORY Gonorrhea: No Genital Herpes: No Chlamydia: Yes Tuberculosis: No Syphilis: No Hepatitis: No HIV/AIDS Exposure: No Rash or Viral Illness: No HPV: No PHYSICAL EXAM General: Normal HEENT: Normal Neurologic: Normal Thyroid: Normal Heart: Normal Lungs: Normal Breast: Normal Back: Normal Abdomen: Normal Genitourinary Exam: Normal Extremities: Normal DTRs: Normal Pelvic Type: Adequate Vital Signs: Reviewed Details Vital Signs: AROM performed at exam VAGINAL EXAM Dilatation: 7 Effacement: 100 Station: -1 MEMBRANES Pooling: Negative Membranes: Ruptured Amniotic Fluid Color: Clear FETUS A EGA: 40.1 Monitoring: External US FHR- Baseline: 120 Variability: Moderate 6-25bpm Accelerations: 15X15 Decelerations: None FHR Category: Category I Estimated Weight (gm): 3500 Presentation: Vertex PLANS FOR LABOR AND DELIVERY Labor and Delivery: None Pain Management: Epidural Feeding Preference: Formula Circumcision: Yes INFORMED CONSENT Signature: with User ID: [email or web address]
[2018-12-07 13:47] LABS: URINE AMPHETAMINES SCREEN NEGATIVE; URINE BARBITURATES SCREEN NEGATIVE; URINE BENZODIAZEPINES SCREEN NEGATIVE; URINE COCAINE SCREEN NEGATIVE; URINE METHADONE SCREEN NEGATIVE; URINE PHENCYCLIDINE SCREEN NEGATIVE
[2018-12-07 13:51] LABS: URINE MARIJUANA (THC) SCREEN UNCONFIRMED POSITIVE
[2018-12-07] MEDS ORDERED: PSEUDOEPHEDRINE HCL 30 MG TABLET PO PRN (16:34)
[2018-12-07] MEDS ORDERED: PROMETHAZINE HCL 25 MG TABLET PO PRN (16:34)
[2018-12-07] MEDS ORDERED: OXYTOCIN/NORMAL SALINE 20 UNIT/1,000 ML RTUINJ IV PRN (16:34)
[2018-12-07] MEDS ORDERED: DIBUCAINE 1% OINTMENT 56 GM TP PRN (16:34)
[2018-12-07] MEDS ORDERED: NA PHOS,M-B/NA PHOS,DI-BA (ADULT) 133 ML ENEMA PR PRN (16:34)
[2018-12-07] MEDS ORDERED: MAGNESIUM HYDROXIDE SUSP 30 ML UDCUP PO PRN (16:34)
[2018-12-07] MEDS ORDERED: ACETAMINOPHEN WITH CODEINE #3 TABLET PO PRN (16:34)
[2018-12-07] MEDS ORDERED: PROMETHAZINE HCL 25 MG SUPP.RECT PR PRN (16:34)
[2018-12-07] MEDS ORDERED: PROMETHAZINE HCL INJ 25 MG/1 ML VIAL IV PRN (16:34)
[2018-12-07] MEDS ORDERED: ZOLPIDEM TARTRATE 5 MG TABLET PO PRN (16:34)
[2018-12-07] MEDS ORDERED: DIPH/PERTUSS(ACELL)/TETANUS VAC/PF 0.5 ML SYR (>=10YO) IM PRN (16:34)
[2018-12-07] MEDS ORDERED: ACETAMINOPHEN 650 MG SUPP.RECT PR PRN (16:34)
[2018-12-07] MEDS ORDERED: GLYCERIN/WITCH HAZEL LEAF 1 EACH MED..PAD TP PRN (16:34)
[2018-12-07] MEDS ORDERED: MEASLES,MUMPS&RUBELLA VACC/PF 0.5 ML VIAL SUBCUT PRN (16:34)
[2018-12-07] MEDS ORDERED: DIPHENHYDRAMINE HCL 25 MG CAPSULE PO PRN (16:34)
[2018-12-07] MEDS ORDERED: BENZOCAINE/MENTHOL AEROSOL SPRAY 56 ML TOP PRN (16:34)
[2018-12-07] MEDS ORDERED: IBUPROFEN 800 MG TABLET ONE (17:24)
--- NOTE | 2018-12-07 17:28 | Warning Signs in Babies ---
VOD Warning Signs Datetime Report Generated by [facility]: 12/07/2018 17:28 VOD#[id number] -Warning Signs in Babies: Viewed with Parent(s)/Family (12/07/2018 12:02:RAVIN Hurst)
--- NOTE | 2018-12-07 17:31 | Delivery Summary ---
Del Sum A-C Datetime Report Generated by CPN: 12/07/2018 17:31 DELIVERY PERSONNEL DELIVERY PERSONNEL: [id number] Delivery Doctor:: Nimo Franco MD Labor and Delivery Nurse:: Clementina Cruz RNC Nursery Nurse:: Chasity Trujillo RN Bath Mixer/CARGO VESSEL STEWARDESS: Janie Millananeda, ST MATERNAL INFORMATION Delivery Anesthesia: Epidural Medications After Delivery: Pitocin Bolus-Please Comment; Cytotec 1000mcg Per Rectum/Vagina Estimated Blood Loss (ml): 200 Maternal Complications: None LABOR SUMMARY EDC: 12/06/2018 00:00 No. Babies in Womb: 1 Attempted: No Labor Anesthesia: Epidural LABOR INFORMATION Reason for Induction: Not Applicable Onset of Labor: 12/07/2018 10:30 Complete Dilatation: 12/07/2018 15:36 Oxytocin: N/A Group B Beta Strep: negative Antibiotics # of Doses: 0 Antibiotics Time of Last Dose: 0 Name of Antibiotic Given: 0 Steroids Given: None; < 24 Hours before Delivery Reason Steroids Not Administered: Not Applicable MEMBRANES Membranes Rupture Method: Artificial Rupture of Membranes: 12/07/2018 12:54 Length of Rupture (hr): 3.03 Amniotic Fluid Color: Clear Amniotic Fluid Amount: Moderate Amniotic Fluid Odor: Normal STAGES OF LABOR Stage 1 hr: 5 Stage 1 min: 6 Stage 2 hr: 0 Stage 2 min: 20 Stage 3 hr: 0 Stage 3 min: 3 Total Time in Labor hr: 5 Total Time in Labor min: 29 VAGINAL DELIVERY Episiotomy: None Laceration #1: None Laceration Extension #1: N/A Laceration Repair: Not Applicable Sponge Count Correct: N/A CSECTION DELIVERY Primary Indication: N/A Secondary Indication: N/A CSection Incidence: N/A Labor: N/A Elective: N/A CSection Incision: N/A BABY A INFORMATION Infant Delivery Date/Time: 12/07/2018 15:56 Method of Delivery: Vaginal Born in Route : No : N/A Forceps: N/A Vacuum Extraction: N/A Shoulder Dystocia : No PRESENTATION/POSITION BABY A Presentation: Cephalic Cephalic Presentation: Vertex Vertex Position: Left Occipital Anterior Breech Presentation: N/A PLACENTA INFORMATION BABY A Placenta Delivery Time : 12/07/2018 15:59 Placenta Method of Delivery: Spontaneous Placenta Status: Delivered SCORES BABY A Heart Rate 1 min: >100 bpm Resp Effort 1 min: Good Cry Reflex Irritability 1 min: Cough or Sneeze or Pulls Away Muscle Tone 1 min: Active Motion Color 1 min: Blue/Pale Resuscitation Effort 1 min: Tactile Stimulation SCORE 1 MIN: 8 Heart Rate 5 min: >100 bpm Resp Effort 5 min: Good Cry Reflex Irritability 5 min: Cough or Sneeze or Pulls Away Muscle Tone 5 min: Active Motion Color 5 min: Body [place], Extremities Blue Resuscitation Effort 5 min: N/A SCORE 5 MIN: 9 INFANT INFORMATION BABY A Gestational Age at Delivery: 40.1 Gestational Status: Full Term- 39- 40.6 Weeks Outcome : Liveborn Infant Condition : Stable Infant Sex: Male IDENTIFICATION BABY A Infant Verification Date/Time: 12/07/2018 16:38 ID Band Number: [id number] Mother's Name Verified: Yes RN Verifying : Clementina Cruz [facility] Additional Verifying Personnel: Janie Shreman INDUSTRIAL MAINTENANCE TECHNICIAN WEIGHT/LENGTH BABY A Infant Birthweight (gm): 3649 Weight (lb): 8 Weight (oz): 1 Length (in): 21.00 Infant Length (cm): 53.34 CORD INFORMATION BABY A No. Cord Vessels: 3 Nuchal Cord : N/A Cord Blood Taken: Yes-For Eval (Mom's Blood Type - or O+) Infant Suction: Mouth; Nose ASSESSMENT BABY A Infant Complications: Meconium Complications- Other: terminal mec Physical Findings at Delivery: Bruising Respirations: Appears Normal Skin to Skin: Yes Skin to Skin Time (min): 60 Photo Checker And Assembler/ALS Called : No Infant Care By: Solo Trujillo RN Transferred To: Remains with Mother BABY B INFORMATION : N/A SIGNATURES Signature: with User ID: Juan [email or web address]
[2018-12-07] MEDS: FAMOTIDINE 20 MG TABLET PO SCH (21:33)
[2018-12-07] MEDS: FERROUS SULFATE 325 MG TABLET PO SCH (21:33)
[2018-12-07] MEDS: IBUPROFEN 800 MG TABLET PO SCH (21:33)
[2018-12-07] MEDS: DOCUSATE SODIUM 100 MG CAPSULE PO SCH (21:33)
[2018-12-07] MEDS: ACETAMINOPHEN WITH CODEINE #3 TABLET PO PRN (23:44)
[2018-12-08] MEDS: IBUPROFEN 800 MG TABLET PO SCH ×3 (05:31→22:04)
[2018-12-08 08:11] LABS: HEMOGLOBIN 9.3 g/dL (12.0-15.5); MEAN CORPUSCULAR HEMOGLOBIN 21.6 pg (27.0-33.4); MEAN CORPUSCULAR HGB CONC 32.2 g/dL (32.0-36.0); MEAN CORPUSCULAR VOLUME 67 fl (80-97); PLATELET COUNT 137 10^3/uL (150-450); RED BLOOD COUNT 4.33 10^6/uL (3.72-5.28); RED CELL DISTRIBUTION WIDTH 17.5 % (11.5-14.0); WHITE BLOOD COUNT 12.2 10^3/uL (4.0-10.5)
--- NOTE | 2018-12-08 09:10 | PDOC PROGRESS REPORT ---
Subjective-OB Progress Note for:: 12/08/18 - PPDay #1, doing well, bottlefeeding, O+, Rubella Immune, no complaints. Physical Exam (OB) Vital Signs: Temp Pulse Resp BP Pulse Ox 97.9 F 84 16 119/83 100 12/08/18 07:40 12/08/18 07:40 12/08/18 07:40 12/08/18 07:40 12/08/18 07:40 Intake & Output 12/07/18 12/08/18 12/09/18 06:59 06:59 06:59 Intake Total 240 Balance 240 Weight 84.4 kg - General General Appearance: Appears well, Alert In distress: None - PIH/Pre-Eclampsia Clonus: Negative Headache: Absent Epigastric Pain: No Visual Changes: No - Lochia Lochia Amount: Small 10-25 ml Lochia Color: Rubra/Red - Abdomen Description: Soft, Round Hernia Present: No Fundal Description: Firm Fundal Height: u/u - u/2 - Respiratory Respiratory Status: No respiratory distress - Abdominal Distension: No distension Tenderness: Nontender - Genitourinary Genitourinary Note: voiding - Extremities Upper extremity: Normal inspection Lower extremities: Normal inspection - Neurological Cognition: Normal Orientation: AAOx4 - Psychological Associated symptoms: Normal affect, Normal mood - Skin Skin Temperature: Warm Skin Moisture: Dry Objective-Diagnostic Laboratory: 12/08/18 07:18 12/07/18 12/07/18 12/07/18 12:02 12:52 12:52 WBC 9.4 RBC 4.36 Hgb 9.5 L Hct 28.8 L MCV 66 L MCH 21.7 L MCHC 32.9 RDW 17.8 H Plt Count 139 L Urine Color ROYA Urine Appearance CLOUDY Urine pH 5.0 Ur Specific [place] 1.023 Urine Protein 30 H Urine Glucose (UA) NEGATIVE Urine Ketones 80 H Urine Blood NEGATIVE Urine Nitrite NEGATIVE Ur Leukocyte Esterase LARGE H Blood Type O POSITIVE Antibody Screen NEGATIVE 12/08/18 07:18 WBC 12.2 H RBC 4.33 Hgb 9.3 L Hct 29.0 L MCV 67 L MCH 21.6 L MCHC 32.2 RDW 17.5 H Plt Count 137 L Urine Color Urine Appearance Urine pH Ur Specific [place] Urine Protein Urine Glucose (UA) Urine Ketones Urine Blood Urine Nitrite Ur Leukocyte Esterase Blood Type Antibody Screen Assessment and Plan(PN) - Assessment and Plan (1) Anemia complicating , third trimester Is this a current diagnosis for this admission?: Yes (2) Anemia due to acute blood loss Is this a current diagnosis for this admission?: Yes (3) Delivery normal Is this a current diagnosis for this admission?: Yes (4) Gestational diabetes mellitus (GDM) affecting Is this a current diagnosis for this admission?: Yes (6) Qualifiers: Weeks of gestation: 36 weeks Qualified Code(s): Z3A.36 - 36 weeks gestation of Is this a current diagnosis for this admission?: Yes - Time Spent with Patient Time with patient: Less than 15 minutes Medications reviewed and adjusted accordingly: Yes - Disposition Anticipated Discharge: Home Within: within 24 hours
[2018-12-08] MEDS: DOCUSATE SODIUM 100 MG CAPSULE PO SCH ×2 (10:03→17:53)
[2018-12-08] MEDS: FAMOTIDINE 20 MG TABLET PO SCH (10:03)
[2018-12-08] MEDS: PRENATAL VITAMIN W DHA CAPSULE PO SCH (10:03)
[2018-12-08] MEDS: SENNOSIDES/DOCUSATE 8.6-50 MG 1 EACH TABLET PO SCH (10:03)
[2018-12-08] MEDS: FERROUS SULFATE 325 MG TABLET PO SCH ×2 (10:03→17:53)
[2018-12-08] MEDS: ACETAMINOPHEN WITH CODEINE #3 TABLET PO PRN (17:56)
[2018-12-09] MEDS: IBUPROFEN 800 MG TABLET PO SCH (05:58)
--- NOTE | 2018-12-09 08:59 | PDOC DISCHARGE SUMMARY ---
Final Diagnosis Discharge Date: 12/09/18 - Day #2, doing well, bottlefeeding, O+, Rubella immune, no complaints - Final Diagnosis (1) Anemia complicating , third trimester Is this a current diagnosis for this admission?: Yes (2) Anemia due to acute blood loss Is this a current diagnosis for this admission?: Yes (3) Delivery normal Is this a current diagnosis for this admission?: Yes (4) Gestational diabetes mellitus (GDM) affecting Is this a current diagnosis for this admission?: Yes (5) Positive GBS test Is this a current diagnosis for this admission?: Yes (6) Is this a current diagnosis for this admission?: Yes Discharge Data - Discharge Medication Prescriptions: Ferrous Sulfate [Feosol 325 mg Tablet] 325 mg PO DAILY #30 tablet Ibuprofen [Motrin 800 mg Tablet] 800 mg PO Q8 #60 tablet Home Medications: Pnv No.103/Folic/Om3s/Fish Oil [ Gummies] 1 tab PO DAILY 07/31/15 Ferrous Sulfate [Feosol 325 mg Tablet] 325 mg PO DAILY #30 tablet 12/09/18 Ibuprofen [Motrin 800 mg Tablet] 800 mg PO Q8 #60 tablet 12/09/18 Reason(s) for Admission: Onset of Labor Procedures: Ultrasound Intrapartum Procedure(s): Spontaneous Vaginal Delivery - Diagnosis Test Laboratory: Temp Pulse Resp BP Pulse Ox 97.3 F 80 16 127/86 H 98 12/08/18 20:00 12/08/18 20:00 12/08/18 20:00 12/08/18 20:00 12/08/18 20:00 12/07/18 12/07/18 12/08/18 12:02 12:52 07:18 RBC 4.36 4.33 Hgb 9.5 L 9.3 L Hct 28.8 L 29.0 L Urine Opiates Screen NEGATIVE - Discharge information/Instructions Discharge Activity: Activity As Tolerated, No Lifting Over 10 Pounds, Pelvic Rest Discharge Diet: As Tolerated, Regular Disposition: HOME, SELF-CARE Follow up with: [facility] in: 4, Weeks
[2018-12-09 09:00] VITALS: BP 117/72
[2018-12-09] MEDS: PRENATAL VITAMIN W DHA CAPSULE PO SCH (10:10)
[2018-12-09] MEDS: SENNOSIDES/DOCUSATE 8.6-50 MG 1 EACH TABLET PO SCH (10:10)
[2018-12-09] MEDS: DOCUSATE SODIUM 100 MG CAPSULE PO SCH (10:11)
[2018-12-09] MEDS: FAMOTIDINE 20 MG TABLET PO SCH (10:11)
[2018-12-09] MEDS: FERROUS SULFATE 325 MG TABLET PO SCH (10:11)
== END 2018-12-09 12:13 | disposition home or self-care (01) | DRG 806 ==
LOC: LC 11:53 → LR 12:12 → 2S 18:32
PROVIDERS: ADMIT Obstetrics & Gynecology; ATTEND Obstetrics & Gynecology
PROC: 10E0XZZ Delivery of Products of Conception, External Approach (ICD-10-PCS; principal; 2018-12-07)
PROC: 10907ZC Drainage of Amniotic Fluid, Therapeutic from Products of Conception, Via Natural or Artificial Opening (ICD-10-PCS; 2018-12-07)
PROC: 4A1HX4Z Monitoring of Products of Conception, Cardiac Electrical Activity, External Approach (ICD-10-PCS; 2018-12-07)
DX: O24.429 Gestational diabetes mellitus in childbirth, unspecified control (principal); D62 Acute posthemorrhagic anemia; Z37.0 Single live birth; O99.334 Smoking (tobacco) complicating childbirth; F17.210 Nicotine dependence, cigarettes, uncomplicated; Z3A.40 40 weeks gestation of pregnancy; O99.013 Anemia complicating pregnancy, third trimester
CPT/HCPCS: 36415; 80307; 80349; 81005; 85027; 86592; 86850; 86900; 86901; 94760; G0480; J2590; J3010; J3490

== ENCOUNTER 2019-02-05 07:07 | Day surgery (SDC) | payer MEDICAID ==
[2019-02-04 10:10] LABS: APPEARANCE,URINE SLIGHTLY-CLOUDY; BILIRUBIN,URINE NEGATIVE (NEGATIVE); COLOR,URINE YELLOW; GLUCOSE, URINE NEGATIVE (NEGATIVE); KETONES,URINE NEGATIVE (NEGATIVE); LEUKOCYTE ESTERASE,URINE NEGATIVE (NEGATIVE); NITRITE,URINE NEGATIVE (NEGATIVE); PROTEIN,URINE NEGATIVE (NEGATIVE); URINE SPECIFIC GRAVITY 1.025; UROBILINOGEN,URINE NEGATIVE mg/dL (<2.0)
[2019-02-04 10:45] LABS: HEMATOCRIT 38.1 % (36.0-47.0); HEMOGLOBIN 12.5 g/dL (12.0-15.5); MEAN CORPUSCULAR HEMOGLOBIN 23.5 pg (27.0-33.4); MEAN CORPUSCULAR HGB CONC 32.7 g/dL (32.0-36.0); MEAN CORPUSCULAR VOLUME 72 fl (80-97); PLATELET COUNT 185 10^3/uL (150-450); RED BLOOD COUNT 5.31 10^6/uL (3.72-5.28); WHITE BLOOD COUNT 4.1 10^3/uL (4.0-10.5)
[~2019-02-05 07:07] MED LIST: LACTATED RINGERS 1000 ML IV PRN; LIDOCAINE 0.5% INJ-PF (5 MG/ML) 50 ML SDV SUBCUT PRN
[2019-02-05] MEDS ORDERED: FENTANYL CITRATE INJ/PF 100 MCG/2 ML AMPUL ONE (08:39)
[2019-02-05] MEDS ORDERED: PROPOFOL INJ 200 MG/20 ML VIAL IV ONE (08:40)
[2019-02-05] MEDS ORDERED: DEXMEDETOMIDINE INJ 80 MCG/20 ML VIAL IV ONE (08:40)
[2019-02-05] MEDS ORDERED: ACETAMINOPHEN 1,000 MG/100 ML RTUPB IV ONE (08:40)
[2019-02-05] MEDS ORDERED: MIDAZOLAM 2 MG/2 ML INJ ONE (08:40)
[2019-02-05] MEDS ORDERED: MORPHINE SULFATE 10 MG/ML INJ IV PRN (09:53)
[2019-02-05] MEDS ORDERED: MEPERIDINE HCL/PF INJ 25 MG/1 ML DISP.SYRIN IV PRN (09:53)
[2019-02-05] MEDS ORDERED: PROMETHAZINE HCL INJ 25 MG/1 ML VIAL IV PRN ×2 (09:53)
[2019-02-05] MEDS ORDERED: ONDANSETRON HCL INJ/PF 4 MG/2 ML SDV IV PRN (09:53)
[2019-02-05] MEDS ORDERED: FENTANYL CITRATE INJ/PF 100 MCG/2 ML AMPUL IV PRN ×3 (09:53)
[2019-02-05] MEDS ORDERED: DIPHENHYDRAMINE HCL 50 MG/ML VIAL IV PRN (09:53)
[2019-02-05] MEDS: FENTANYL CITRATE INJ/PF 100 MCG/2 ML AMPUL ONE ×2 (09:58→10:05)
[2019-02-05] MEDS ORDERED: MORPHINE SULFATE 10 MG/ML INJ IM PRN (10:27)
[2019-02-05] MEDS ORDERED: RINGERS SOLUTION,LACTATED 1,000 ML IV PRN (10:27)
[2019-02-05] MEDS ORDERED: OXYCODONE-ACETAMINOPHEN 5-325 MG TABLET PO PRN ×2 (10:28→10:29)
[2019-02-05] MEDS ORDERED: IBUPROFEN 800 MG TABLET PO PRN (10:28)
[2019-02-05] MEDS ORDERED: OXYCODONE-ACETAMINOPHEN 5-325 MG TABLET ONE (10:45)
[2019-02-05 12:08] VITALS: BP 112/67
--- NOTE | 2019-02-05 12:29 | OPERATIVE REPORT E ---
Operative Report NAME: CULLEN JAMES : 1990 AGE: 28Y DATE OF SURGERY: 02/05/2019 ROOM: PREOPERATIVE DIAGNOSIS: Undesired fertility. POSTOPERATIVE DIAGNOSIS: Undesired fertility. SURGEON: MAXIM FELDMAN M.D. FINANCE TEACHER: Twila Allison, Elementary Librarian On Air Personality. ANESTHESIA: Dr. Ferreira with general. FINDINGS: Normal uterus, tubes, and ovaries. Mild adhesions of the posterior aspect of the uterus, but nothing that was constrictive. COMPLICATIONS: None. ESTIMATED BLOOD LOSS: 10 mL. SPECIMENS REMOVED: None. PROCEDURE: Laparoscopic tubal cauterization. PROCEDURE IN DETAIL: The patient was taken to the operating room and prepared and draped in a normal sterile fashion in the dorsal lithotomy position. Under sterile conditions, an in-and-out cath of approximately 25 mL of clear urine was performed. The sterile speculum was then placed into the vagina. The cervix was grasped on the anterior lip with a single-toothed tenaculum and a Hulka clamp was placed through the cervix for uterine manipulation. Speculum and tenaculum were then removed and gloves were changed and attention was turned to the upper portion of the case where an umbilical skin incision was made. The Veress needle was introduced through the incision and peritoneal cavity placement was confirmed with free flow of sterile water through the Veress needle. The abdomen was inflated with approximately 2 L of CO2 gas. The Veress needle was then removed and a 5 mm trocar was placed through this incision. The patient was placed in Trendelenburg and the camera was introduced. The uterus was manipulated and the fallopian tubes were easily found. Under direct visualization, a 5 mm trocar was placed in the left lower quadrant. The bowel was swept away with a blunt probe and the blunt probe was removed. The Kleppinger was then introduced and both fallopian tubes were then coagulated approximately 3.5 cm until complete occlusion was felt to be adequate. The Kleppinger and left lower quadrant trocar was then removed. The patient was taken out of Trendelenburg. The abdomen was deflated through the umbilical port and this port was removed. Both skin incisions were closed with 4-0 Vicryl. The patient tolerated the procedure well. Sponge, lap, and needle counts were correct x2 and the patient was taken to recovery in stable condition. DICTATING PHYSICIAN: MAXIM FELDMAN M.D. [id number] PHY#: [id number] ID: [id number] JOB#: [id number] ACCT: [id number] cc:MAXIM FELDMAN M.D. >
[2019-02-05] MEDS ORDERED: KETOROLAC TROMETHAMINE 60 MG/2 ML SDV ONE (14:20)
[2019-02-05] MEDS ORDERED: ONDANSETRON HCL INJ/PF 4 MG/2 ML SDV ONE (14:20)
[2019-02-05] MEDS ORDERED: METOCLOPRAMIDE HCL INJ/PF 10 MG/2 ML SDV ONE (14:20)
[2019-02-05] MEDS ORDERED: DEXAMETHASONE SOD PHOSPHATE INJ 4 MG/1 ML VIAL ONE (14:20)
[2019-02-05] MEDS ORDERED: SUCCINYLCHOLINE CHLORIDE INJ 200 MG/10 ML VIAL ONE (14:20)
== END 2019-02-05 12:00 | disposition home or self-care (01) ==
LOC: OROUT 07:07
PROVIDERS: ATTEND Obstetrics & Gynecology
DX: Z30.2 Encounter for sterilization (principal); F17.210 Nicotine dependence, cigarettes, uncomplicated
CPT/HCPCS: 36415; 85027; 81005; 81025; 58670; J2250; J1100; J1885; J3010; J2765; J0330; J2405; J2704; J0131; 851; J3490